=== PATIENT | female | born 1935 | race Two or more races ===

== ENCOUNTER 2019-04-22 08:32 | Outpatient (CLI) | payer OTHER | END 2019-04-22 08:40 | disposition home or self-care (01) | LOC: RX STUDY 08:32 | DX: K56.50 Intestinal adhesions [bands], unspecified as to partial versus complete obstruction (principal) ==

== ENCOUNTER 2020-05-05 09:38 | Emergency (ER) | payer OTHER ==
[~2020-05-05] VITALS: Ht 157.5 cm; Wt 72.6 kg
[2020-05-05] MEDS ORDERED: TOPROL XL25 M1 PO (09:57)
[2020-05-05] MEDS ORDERED: AMITIZA8 MCG PO (09:58)
[2020-05-05] MEDS ORDERED: TYLENOL ARTHRI650 MG PO (09:58)
[2020-05-05] MEDS ORDERED: COZAAR100 MG PO (09:58)
[2020-05-05] MEDS ORDERED: DULCOLAX10 MG RECTAL (15:48)
[2020-05-05] MEDS ORDERED: DULCOLAX5 MG PO (15:48)
== END 2020-05-05 16:06 | disposition home or self-care (01) ==
LOC: ER 09:38
DX: K59.09 Other constipation (principal); R10.84 Generalized abdominal pain

== ENCOUNTER 2021-06-14 07:23 | Emergency (ER) | payer OTHER ==
[~2021-06-14] VITALS: Ht 157.5 cm; Wt 68.0 kg
[~2021-06-14 07:23] MED LIST: AMITIZA8 MCG PO; COZAAR100 MG PO; DULCOLAX10 MG RECTAL; DULCOLAX5 MG PO; TOPROL XL25 M1 PO; TYLENOL ARTHRI650 MG PO
[2021-06-14] MEDS ORDERED: LOSARTAN POTASS25 MG PO (07:41)
[2021-06-14] MEDS ORDERED: CLOPIDOGREL BIS75 MG PO (07:42)
[2021-06-14] MEDS ORDERED: DICLOFENAC POTA50 MG PO (07:42)
[2021-06-14] MEDS ORDERED: ST. JOSEPH ASPI81 M2 PO (07:43)
[2021-06-14] MEDS ORDERED: ATORVASTATIN CA40 MG PO (07:43)
[2021-06-14] MEDS ORDERED: PEPCID AC20 MG PO (14:43)
[2021-06-14] MEDS ORDERED: ENEMA BAG1 EACH RECTAL (14:47)
== END 2021-06-14 14:52 | disposition home or self-care (01) ==
LOC: ER 07:23
DX: K59.00 Constipation, unspecified (principal); R10.9 Unspecified abdominal pain; I10 Essential (primary) hypertension; Z91.013 Allergy to seafood

== ENCOUNTER 2021-09-27 14:20 | Outpatient (CLI) | payer OTHER ==
[~2021-09-27 14:20] MED LIST changes: +ATORVASTATIN CA40 MG PO; +CLOPIDOGREL BIS75 MG PO; +DICLOFENAC POTA50 MG PO; +ENEMA BAG1 EACH RECTAL; +LOSARTAN POTASS25 MG PO; +PEPCID AC20 MG PO; +ST. JOSEPH ASPI81 M2 PO
== END 2021-09-27 14:27 | disposition home or self-care (01) ==
LOC: RX STUDY 14:20
PROVIDERS: ATTEND Surgery
DX: K59.00 Constipation, unspecified (principal)

== ENCOUNTER 2022-09-27 11:01 | Emergency (ER) | payer OTHER ==
[~2022-09-27] VITALS: Ht 157.5 cm; Wt 63.5 kg
[2022-09-27] MEDS ORDERED: PAXLOVID 300-11 EACH PO (13:20)
[2022-09-27] MEDS ORDERED: PEPCID AC20 MG PO (13:20)
== END 2022-09-27 13:39 | disposition home or self-care (01) ==
LOC: ER 11:01
DX: U07.1 COVID-19 (principal); R53.1 Weakness; I10 Essential (primary) hypertension; Z91.013 Allergy to seafood
CPT/HCPCS: 36415; 96365; 99284; J3490

== ENCOUNTER 2022-12-17 13:00 | Emergency (ER) | payer OTHER ==
[~2022-12-17] VITALS: Ht 157.5 cm; Wt 63.5 kg
[~2022-12-17 13:00] MED LIST changes: +PAXLOVID 300-11 EACH PO
[2022-12-17] MEDS ORDERED: LIPITOR40 M1 PO (13:37)
[2022-12-17] MEDS ORDERED: CANDESARTAN CILE8 MG (13:37)
[2022-12-17] MEDS ORDERED: FARXIGA5 MG PO (13:38)
[2022-12-17 14:58] LABS: URINE APPEARANCE Clear; URINE BILIRRUBIN Negative (NEGATIVE); URINE COLOR Yellow; URINE GLUCOSE Negative (NEGATIVE); URINE NITRATE Negative; URINE PROTEIN Negative (NEGATIVE); URINE UROBILINOGEN 0.2 E.U./dl
[2022-12-17 15:19] LABS: HEMATOCRIT 40.9 % (36.0-45.00); HEMOGLOBIN 12.9 g/dL (12.0-15.00); MEAN CELL VOLUME 88.6 fL (80.00-100.00); MEAN CORPUSCULAR HGB CONC 31.6 g/dl (32.0-36.0); PLATELET COUNT 141 K/uL (150-450); RED BLOOD COUNT 4.61 M/uL (4.00-6.00); RED CELL DISTRIBUTION WIDTH 15.8 % (11.5-14.5)
[2022-12-17 15:57] LABS: ALBUMIN 3.5 gm/dL (3.4-5.0); BILIRUBIN TOTAL 0.64 mg/dL (0.3-1.2); BILIRUBIN,CONJUGATED 0.22 mg/dL (0.0-0.2); BILIRUBIN,UNCONJUGATED 0.42 mg/dL (0.0-0.6); CREATININE SERUM 1.07 mg/dL (0.55-1.02); GFR 48.39
[2022-12-17 16:16] LABS: POTASSIUM 5.23 mEq/L (3.5-5.1)
[2022-12-17 17:17] LABS: URINE BLOOD Trace; URINE EPITHELIAL CELLS 4.9 uL (0.0-38.8); URINE LEUKOCYTE Trace; URINE RBC 12.7 uL (0.0-20.8); URINE WBC 8.6 uL (0.0-23.2)
== END 2022-12-17 18:48 | disposition home or self-care (01) ==
LOC: ER 13:00
PROVIDERS: General Practice
DX: R10.13 Epigastric pain (principal); Z91.013 Allergy to seafood; I10 Essential (primary) hypertension; K59.00 Constipation, unspecified
CPT/HCPCS: 36415; 74019; 93005; 96365; 96366; 99284; J2405; J3490; J7030

== ENCOUNTER 2023-08-23 15:00 | Emergency (ER) | payer OTHER ==
[~2023-08-23] VITALS: Ht 157.5 cm; Wt 59.0 kg
[~2023-08-23 15:00] MED LIST changes: +CANDESARTAN CILE8 MG; +FARXIGA5 MG PO; +LIPITOR40 M1 PO
[2023-08-23] MEDS ORDERED: KETOROLAC TROMETHAMINE 30 MG VIAL IM STA (17:09)
== END 2023-08-23 19:04 | disposition home or self-care (01) ==
LOC: ER 15:01
DX: M54.9 Dorsalgia, unspecified (principal); Z91.013 Allergy to seafood; M62.830 Muscle spasm of back
CPT/HCPCS: 72100; 96372; 99283; J1885

== ENCOUNTER 2023-09-02 09:55 | Emergency (ER) | payer OTHER ==
[~2023-09-02] VITALS: Ht 152.4 cm; Wt 58.1 kg
[2023-09-02] MEDS ORDERED: ORPHENADRINE CITRATE 30 MG/ML AMPUL IM STA (11:15)
[2023-09-02] MEDS ORDERED: ACETAMINOPHEN 500 MG GEL..CAP PO STA (11:18)
== END 2023-09-02 11:48 | disposition home or self-care (01) ==
LOC: ER 09:56
DX: M54.50 Low back pain, unspecified (principal); I10 Essential (primary) hypertension; Z91.013 Allergy to seafood
CPT/HCPCS: 96372; 99282; J2360